=== PATIENT | female | born 1965 | race Caucasian/White ===

== ENCOUNTER 2018-11-21 10:03 | Emergency (ER) | payer OTHER ==
[~2018-11-21] VITALS: Ht 175.3 cm; Wt 95.2 kg
[~2018-11-21 10:03] MED LIST: NAPR500 PO; TRAM50 PO
[2018-11-21] MEDS ORDERED: Zovirax800 MG PO (10:36)
[2018-11-21] MEDS ORDERED: Percocet 5-3251 EACH PO (10:36)
== END 2018-11-21 10:58 | disposition home or self-care (01) ==
LOC: ER 10:03
DX: B02.9 Zoster without complications (principal); I10 Essential (primary) hypertension; Z87.891 Personal history of nicotine dependence
CPT/HCPCS: 99282

== ENCOUNTER 2018-11-27 08:54 | Emergency (ER) | payer OTHER ==
[~2018-11-27] VITALS: Ht 172.7 cm; Wt 95.2 kg
[~2018-11-27 08:54] MED LIST changes: +Percocet 5-3251 EACH PO; +Zovirax800 MG PO
[2018-11-27 09:46] LABS: BASOPHILS ABSOLUTE AUTO 0.06 K/mm3 (0.00-0.23); BASOPHILS PERCENT AUTO 1 % (0-2); EOSINOPHILS PERCENT AUTO 4 % (0-6); Hematocrit 44.3 % (33.0-51.0); Hemoglobin 14.3 g/dL (11.5-16.0); IMMATURE GRAN ABSOLUTE AUTO 0.01 K/mm3 (0.00-0.10); IMMATURE GRAN PERCENT AUTO 0 % (0-1); LYMPHOCYTES ABSOLUTE AUTO 2.01 K/mm3 (0.84-5.20); LYMPHOCYTES PERCENT AUTO 29 % (21-46); MONOCYTES ABSOLUTE AUTO 0.44 K/mm3 (0.16-1.47); MONOCYTES PERCENT AUTO 6 % (4-13); Mean Corpuscular HGB Conc 32.3 g/dL (31.5-36.5); Mean Corpuscular Volume 93 fL (80-100); Mean Platelet Volume 10.5 fL (9.1-12.4); NEUTROPHILS ABSOLUTE AUTO 4.24 K/mm3 (1.96-9.15); NEUTROPHILS PERCENT AUTO 60 % (41-73); Platelet Count 289 K/mm3 (150-400); RDW Coefficient Variation 11.9 % (11.7-14.2); RDW Standard Deviation 40.9 fL (35.1-46.3); Red Blood Cell Count 4.76 M/mm3 (3.80-5.20); White Blood Cell Count 7.06 K/mm3 (4.00-11.30)
[2018-11-27 10:10] LABS: Alanine Aminotransfer (ALT/SGP 38 U/L (12-78); Albumin, Blood 3.7 g/dL (3.4-5.0); Alk Phos 83 U/L (50-136); Anion Gap 4 mmol/L (6-16); Aspartate Aminotrans (AST/SGOT 26 U/L (12-37); Bilirubin, Total 0.3 mg/dL (0.1-1.0); Blood Urea Nitrogen 14 mg/dL (8-24); Bun/Creatinine Ratio 18.2 (12.0-20.0); CO2, Blood 31 mmol/L (21-32); Chloride, Blood 103 mmol/L (98-108); Creatinine, Blood 0.77 mg/dL (0.40-1.00); Globulin, Blood 3.7 g/dL (2.2-4.0); Glomerular Filtration Rate >60 (60-); Glucose, Blood 99 mg/dL (70-99); Potassium, Blood 4.1 mmol/L (3.5-5.5); Sodium, Blood 138 mmol/L (136-145); Total Protein, Blood 7.4 g/dL (6.4-8.2); Troponin I <0.015 ng/mL (0.000-0.040)
[2018-11-27] MEDS ORDERED: Neurontin 300300 MG PO (10:37)
[2018-11-27] MEDS ORDERED: LIDO700A20 TOP (10:37)
== END 2018-11-27 11:46 | disposition home or self-care (01) ==
LOC: ER 08:54
PROVIDERS: Emergency Medicine
DX: R07.89 Other chest pain (principal); I10 Essential (primary) hypertension
CPT/HCPCS: 36415; 71046; 80053; 84484; 85025; 93005; 93010; 96374; 96375; 99285-25; J2270; J2405; J3010